=== PATIENT | male | born 1940 | race African-American/Black ===

== ENCOUNTER 2016-09-02 17:11 | Emergency (ER) | payer MEDICARE ==
--- NOTE | ~2016-09-02 | CT71 ---
[facility] A Service of [facility] / [facility] RADIOLOGY TEXT RESULTS PATIENT: SEUN DE DIOS LOCATION: SED : 36 UNIT #: [id number] AGE: [address]: Sid Marte MD SEX: M ORDER DR: [id number] [place] [address] [id number] MR#: [id number] Acc #: [id number] NAME: SEUN DE DIOS. : 1940 SEX: M STUDY DATE/TIME: 09/02/2016 18:08 UNIT: SED ROOM: STUDY DESCRIPTION: CT Head Wo Contrast Attending Physician: Sid Marte M.D. Ordering Physician: Javan Leonard M.D. Primary Care Physician: Primary Care Physician No MEDICAL IMAGING REPORT This report is preliminary unless electronic signature is present. EXAM Head CT without contrast 09/02/2016 HISTORY Acute onset of confusion beginning today with numbness of bilateral fingertips. Progressive dementia more aggressive in the last [address] examination was performed with one or more of the following radiation dose reduction techniques: automatic exposure control, adjustment of mA and/or kV according to patient size, and iterative reconstruction. Axial images of the brain obtained without contrast show generalized atrophy. There are chronic ischemic changes seen around the ventricles. There is no evidence of mass effect, hemorrhage, or edema and no midline shift is seen. No acute changes are noted. IMPRESSION Atrophy with chronic ischemic changes. No acute changes are seen. Dictated by... Tyson Carpenter M.D. THIS IS AN ELECTRONICALLY VERIFIED REPORT Tyson Carpenter M.D. at 09/03/2016 2:18 PM KRT/jennifer TD: 09/03/2016 07:11 JOB #: [id number] [facility] A Service [facility] RADIOLOGY TEXT RESULTS PATIENT: SEUN DE DIOS LOCATION: SED : 38 UNIT #: [id number] AGE: [address]: Sid Marte MD SEX: M ORDER DR: MEDICAL IMAGING REPORT Page 1 of 1
[~2016-09-02 17:11] MED LIST: BENZONATATE PO; IBUPROFEN600 MG PO; NEURONTIN100 MG PO; NO MEDICATIONS; NORCO1 TAB 10/3 PO; ZITHROMAX PO
[2016-09-02 17:34] LABS: URINE SOURCE CLEAN CATCH
[2016-09-02 17:37] LABS: URINE APPEARANCE CLEAR; URINE BLOOD NEG (NEG); URINE COLOR YELLOW; URINE GLUCOSE NEG (NORM); URINE KETONE NEG (NEG); URINE LEUKOCYTE ESTERASE NEG (NEG); URINE NITRATE NEG (NEG); URINE PH 5.5 (5-8); URINE PROTEIN 1+ (NEG); URINE SPECIFIC GRAVITY >=1.030 (1.003-1.035)
[2016-09-02 17:39] LABS: MICRO INDICATED? YES; URINE BILIRUBIN NEG (NEG)
[2016-09-02 17:42] LABS: URINE RBC 0-2 /[HPF] (0-2)
[2016-09-02 17:43] LABS: CULTURE INDICATED? NO; URINE BACTERIA NEG (NEG); URINE MUCUS PRESENT; URINE SQUAMOUS EPITHELIAL CELL OCCAS /[HPF]; URINE WBC 0-2 /[HPF] (0-5)
[2016-09-02 19:13] LABS: BASOPHIL% 0.7 % (0-2.5); EOSINOPHIL# 0.1 X10e3 (0-0.7); EOSINOPHIL% 0.8 % (0.0-7.0); HEMATOCRIT 40.2 % (38.0-50.0); HEMOGLOBIN 13.5 gm/dL (13.0-16.0); LYMPHOCYTE# 1.2 X10e3 (1.0-3.5); LYMPHOCYTE% 18.4 % (17.0-45.0); MEAN CELL VOLUME 82.5 FL (83-96); MEAN CORPUSCULAR HEMOGLOBIN 27.8 PG (28-34); MEAN CORPUSCULAR HGB CONC 33.7 g/dL (30-36); MEAN PLATELET VOLUME 7.5 FL (6.5-11.5); MONOCYTE# 0.3 X10e3 (0-1.0); MONOCYTE% 4.7 % (3.0-12.0); NEUTROPHIL# 5.1 X10e3 (1.5-7.1); NEUTROPHIL% 75.4 % (40-75); PLATELET COUNT 306 X10e3 (140-420); RED BLOOD COUNT 4.87 X10e (3.90-5.60); RED CELL DISTRIBUTION WIDTH 13.3 % (11.0-15.5); WHITE BLOOD COUNT 6.8 X10e3 (4.0-10.5)
[2016-09-02 19:14] LABS: DIFF IND NO
[2016-09-02 20:19] LABS: BILIRUBIN,TOTAL 0.6 mg/dL (0.2-2.0); BUN/CREATININE RATIO 10.83; CALCIUM SERUM 8.9 mg/dL (8.4-10.2); CREATININE SERUM 1.2 mg/dL (0.6-1.4); GLOM FILT RATE Estimated 66.7 mL/min (>60); POTASSIUM 3.3 mmol/L (3.5-5.1); PROTEIN TOTAL SERUM 7.6 g/dL (6.0-8.3)
== END 2016-09-02 20:41 | disposition home or self-care (01) ==
LOC: SED 17:11
PROVIDERS: Emergency Medicine
DX: F03.90 Unspecified dementia, unspecified severity, without behavioral disturbance, psychotic disturbance, mood disturbance, and anxiety (principal)
CPT/HCPCS: 36415; 70450; 80053; 81003; 85025; 99285